=== PATIENT | female | born 2000 | race Caucasian/White ===

== ENCOUNTER 2023-01-17 20:51 | Emergency (ER) | payer OTHER ==
[~2023-01-17] VITALS: Ht 172.7 cm; Wt 62.7 kg
[2023-01-17 20:55] VITALS: TEMP 98
[2023-01-17 22:18] VITALS: BP 122/76; PULSE 88
== END 2023-01-17 22:19 | disposition home or self-care (01) ==
LOC: COL.ER 20:51
DX: S05.01XA Injury of conjunctiva and corneal abrasion without foreign body, right eye, initial encounter (principal); H11.421 Conjunctival edema, right eye; Z28.310 Unvaccinated for COVID-19; X58.XXXA Exposure to other specified factors, initial encounter

== ENCOUNTER → 2024-03-14 | Outpatient (CLI) | payer OTHER ==
[~2024-03-14] MED LIST: Iohexol 300 - 10 ML VIAL IV ONE; Triamcinolone 40 MG/ML 1 ML VIAL IJ ONE
== END ==
LOC: COL.RAD 09:26
DX: M25.552 Pain in left hip (principal)
CPT/HCPCS: J0665; J3301; Q9967